=== PATIENT | male | born 1975 | race Caucasian/White ===

== ENCOUNTER 2016-10-08 17:42 | Emergency (ER) | payer BC ==
[~2016-10-08] VITALS: Ht 188 cm; Wt 92.0 kg
[2016-10-08 17:49] VITALS: TEMP 36.3; Ht 188 cm; Wt 92.0 kg
--- NOTE | 2016-10-08 18:44 | EMERGENCY ROOM VISIT NOTE ---
History Report prepared by Maria Elena: Nicole Limon Under the Supervision of: Dr. Kiara Hughes D.O. First contact with patient: 17:45 Chief Complaint: ABDOMINAL PAIN Stated Complaint: ABD PAIN Nursing Triage Summary: Pt arrives to ER BLS with c/o abdominal pain that began last evening. Describes the pain as a sharp cramping directly below the belly button, states "the pain brings me to my knees." Pt reports pain is intermittent and denies upon arrival to ER. History of Present Illness The patient is a 41 year old male who presents to the Emergency Room with complaints of abdominal pain occurring [employer] that has resolved at this time. The patient states that he used to experience similar episodes of abdominal pain that were related to his gallbladder. He had a cholecystectomy 2 years ago and states that he has not had any episodes of abdominal pain since the surgery. Last night he developed periumbilical abdominal pain that woke him up. He got hot and diaphoretic. His brother is a nurse and came to check on him. He found the patient in the position on the floor. He checked the patient's pulses and felt that they seemed weak. He wanted to bring the patient to the ED last night, but after about 15-20 minutes his pain completely resolved and he felt much better. Today the patient went to a restaurant with his . Before they ate, the patient developed the same pain again. He states that it was more painful than last night. He had shallow breathing and difficulty speaking secondary to pain. He feels bloated with each episode of pain and states that his stomach gets very tight. The patient was brought to the ED by ambulance. Nothing in particular seems to trigger his pain. The patient notes that his stool has been harder than usual the last couple of days. He denies any changes in the color of his stool. He also reports that earlier this week he experienced some left sided chest pain that radiated into his shoulder. That pain lasted for about 10 minutes and then resolved. He attributed this pain to a recent increase in physical activity and exercise. The patient denies any chest pain or shoulder pain today. He denies numbness, tingling, back pain, urinary symptoms, recent illness, and any sick contacts. Source of History: patient, family (brother), spouse/significant other Onset: [employer] Position: abdomen Symptom Intensity: severe Quality: other (tightness/bloating) Timing: resolved Modifying Factors (Relieving): other (time) Associated Symptoms: + diaphoresis, No back pain, No chest pain, No numbness , No urinary symptoms Review of Systems See HPI for pertinent positives & negatives. A total of 10 systems reviewed and were otherwise negative. Past Medical & Surgical Medical Problems: (1) GERD (gastroesophageal reflux disease) Surgical Problems: (1) History of cholecystectomy Family History Kidney disease Social History Smoking Status: Never Smoker Marital Status: Housing Status: lives with significant other Occupation Status: employed Current/Historical Medications Scheduled PRN Dicyclomine Hcl (Bentyl), 20 MG PO Q8 PRN for Pain Allergies Coded Allergies: No Known Allergies (Unverified , 10/08/16) Physical Exam Vital Signs Date Time Temp Pulse Resp B/P Pulse Ox O2 Delivery O2 Flow Rate FiO2 10/08/16 22:08 65 18 117/71 98 10/08/16 21:32 58 10/08/16 21:18 57 16 145/72 99 Room Air 10/08/16 20:00 59 16 125/70 98 Room Air 10/08/16 18:51 55 22 128/79 100 Room Air 10/08/16 17:56 52 10/08/16 17:49 36.3 53 18 125/78 100 Room Air Physical Exam GENERAL: alert, well appearing, well nourished, no distress, non-toxic EYE EXAM: normal conjunctiva, PERRL and EOM's grossly intact OROPHARYNX: no exudate, no erythema, lips, buccal mucosa, and tongue normal and mucous membranes are moist NECK: supple, no nuchal rigidity, no adenopathy, non-tender LUNGS: Clear to auscultation. Normal chest wall mechanics HEART: no murmurs, S1 normal and S2 normal ABDOMEN: abdomen soft, non-tender, normo-active bowel sounds, no masses, no rebound or guarding. BACK: Back is symmetrical on inspection and there is no deformity, no midline tenderness, no CVA tenderness. SKIN: no rashes and no bruising UPPER EXTREMITIES: upper extremities are grossly normal. LOWER EXTREMITIES: No pitting edema. NEURO EXAM: Normal sensorium, cranial nerves II-XII grossly intact, normal speech, no gross weakness of arms, no gross weakness of legs. Medical Decision & Procedures ER Provider Diagnostic Interpretation: Radiology results have been interpreted by the radiologist and reviewed by me. ABDOMEN AND PELVIS CT WITH IV AND ORAL CONTRAST CT DOSE: 423.94 mGy.cm HISTORY: abd pain, periumbilical TECHNIQUE: Multiaxial CT images of the abdomen and pelvis were performed following the use of intravenous and oral contrast. COMPARISON STUDY: None. FINDINGS: Mild dependent changes seen within the periphery of the right lung base. Cholecystectomy. Multiple subcentimeter hypodense lesions seen within the liver and kidneys. These are too small to characterize but favor cysts. There is also 1.9 cm hypodense lesion within the right kidney and a 1.4 cm lesion within the left kidney which measure greater than expected Hounsfield units for a simple cyst. However, these do not appear to demonstrate an enhancing component to suggest a solid renal mass. These also favor cysts. The spleen, adrenal glands, and pancreas are unremarkable. A single mildly enlarged portacaval lymph node. Mild central intrahepatic bile duct dilatation is likely due to the patient's postcholecystectomy state. The bladder is unremarkable. Tiny fat-containing umbilical hernia. No bowel wall thickening or obstruction. Normal appendix. There are a few small calcifications within the right kidney IMPRESSION: 1. No bowel wall thickening or obstruction. 2. Normal appendix. 3. Tiny fat-containing umbilical hernia. 4. Multiple hypodense lesions seen within the liver and kidneys. The majority of these are too small to characterize but statistically represent cysts. 5. Cholecystectomy. 6. Right renal calcifications. No hydronephrosis. Electronically signed by: Chilo Felix M.D. 10/08/2016 9:21 PM Dictated Date/Time: 10/08/2016 9:13 PM Laboratory Results 10/08/16 18:28 Red Blood Count 4.81, Mean Corpuscular Volume 89.2, Mean Corpuscular Hemoglobin 31.0, Mean Corpuscular Hemoglobin Concent 34.7, Mean Platelet Volume 9.4, Neutrophils (%) (Auto) 69.3, Lymphocytes (%) (Auto) 21.0, Monocytes (%) (Auto) 6.6, Eosinophils (%) (Auto) 2.7, Basophils (%) (Auto) 0.2, Neutrophils # (Auto) 5.63, Lymphocytes # (Auto) 1.71, Monocytes # (Auto) 0.54, Eosinophils # (Auto) 0.22, Basophils # (Auto) 0.02 5/14/17 18:28 Test 10/08/16 18:28 White Blood Count 8.14 K/uL (4.8-10.8) Red Blood Count 4.81 M/uL (4.7-6.1) Hemoglobin 14.9 g/dL (14.0-18.0) Hematocrit 42.9 % (42-52) Mean Corpuscular Volume 89.2 fL (80-100) Mean Corpuscular Hemoglobin 31.0 pg (25-34) Mean Corpuscular Hemoglobin Concent 34.7 g/dl (32-36) Platelet Count 215 K/uL (130-400) Mean Platelet Volume 9.4 fL (7.4-10.4) Neutrophils (%) (Auto) 69.3 % Lymphocytes (%) (Auto) 21.0 % Monocytes (%) (Auto) 6.6 % Eosinophils (%) (Auto) 2.7 % Basophils (%) (Auto) 0.2 % Neutrophils # (Auto) 5.63 K/uL (1.4-6.5) Lymphocytes # (Auto) 1.71 K/uL (1.2-3.4) Monocytes # (Auto) 0.54 K/uL (0.11-0.59) Eosinophils # (Auto) 0.22 K/uL (0-0.5) Basophils # (Auto) 0.02 K/uL (0-0.2) RDW Standard Deviation 43.4 fL (36.4-46.3) RDW Coefficient of Variation 13.2 % (11.5-14.5) Immature Granulocyte % (Auto) 0.2 % Immature Granulocyte # (Auto) 0.02 K/uL (0.00-0.02) Anion Gap 6.0 mmol/L (3-11) Est Creatinine Clear Calc Drug Dose 110.8 ml/min Estimated GFR () 106.4 Estimated GFR (Non- 91.8 BUN/Creatinine Ratio 13.4 (10-20) Lactic Acid Level 2.0 mmol/L (0.4-2.0) Calcium Level 9.4 mg/dl (8.5-10.1) Total Bilirubin 0.5 mg/dl (0.2-1) Aspartate Amino Transf (AST/SGOT) 88 U/L (15-37) Alanine Aminotransferase (ALT/SGPT) 130 U/L (12-78) Alkaline Phosphatase 104 U/L (45-117) Total Protein 7.9 gm/dl (6.4-8.2) Albumin 4.1 gm/dl (3.4-5.0) Globulin 3.8 gm/dl (2.5-4.0) Albumin/Globulin Ratio 1.1 (0.9-2) Lipase 211 U/L (73-393) Laboratory results per my review. Medications Administered Medications (Trade) Dose Ordered Sig/Jn Route Start Time Stop Time Status Last Admin Dose Admin Ondansetron HCl (Zofran 8mg Iv) 8 mg NOW STAT IV 10/08/16 19:20 10/08/16 19:21 DC 10/08/16 19:24 8 MG Fentanyl Citrate (Fentanyl Inj) 50 mcg NOW STAT IV 10/08/16 19:20 10/08/16 19:21 DC 10/08/16 19:25 50 MCG Fentanyl Citrate (Fentanyl Inj) 50 mcg NOW STAT IV 10/08/16 20:19 10/08/16 20:25 DC 10/08/16 20:23 50 MCG Dicyclomine HCl 20 mg 20 mg NOW ONCE PO 10/08/16 20:30 10/08/16 20:31 DC 10/08/16 20:26 20 MG Pantoprazole Sodium/Syringe (Protonix Inj/ Syringe) 10 ml @ 5 mls/min NOW ONCE IV 10/08/16 21:45 10/08/16 21:46 DC 10/08/16 22:05 5 MLS/MIN Dicyclomine HCl (Bentyl Tab) 20 mg NOW STAT PO 10/08/16 22:05 10/08/16 22:06 DC 10/08/16 22:15 20 MG ED Course 1745: The patient was evaluated in room B9. A complete history and physical exam was performed. 1917: I was called back into the room as the patient was having a recurrence of his abdominal pain. 0: Fentanyl 50 mcg IV, Zofran 8 mg IV 2018: Fentanyl Citrate 50 mcg IV 2029: Bentyl 20 mg PO 2053: Morphine sulfate 4 mg IV 2133: Toradol 30 mg IV 2138: I reassessed the patient at this time. He is feeling better and resting comfortably. I had an extensive bedside conversation with the patient regarding his results and treatment plan as well as follow-up with GI. I answered all pertaining questions that he had. He expressed understanding and verbalized agreement. The patient will be discharged home. 2145: Pantoprazole Sodium 40 mg IV 2205: Bentyl 20 mg PO Medical Decision Differential diagnoses includes but is not limited to gastritis, peptic ulcer disease, GERD, gallbladder disease, pancreatitis, small bowel obstruction, acute coronary syndrome, pericarditis, ischemic bowel, irritable bowel disease, irritable bowel syndrome, appendicitis, diverticulitis, malignancy, hernia, urinary tract infection, torsion, perforation, trauma, infectious, dissection, AAA. Patient well-appearing here despite intermittent episodes of recurrent. Billable abdominal pain. Episode seems spasmodic, or brief, did resolve here with additional pain medication. Labs and imaging otherwise reassuring. Discussed with patient possible etiology and differential diagnosis. Discussed need for close follow-up with family doctor as well as GI doctor when he returns home to [place]. Discussed symptoms to watch and return for. Discussed use of antispasmodic, monitoring of diet, and staying well-hydrated in the interim. Patient family verbalized understanding of all this were agreeable with plan. Doubt or vascular etiology, no evidence for bacteremia/ sepsis. Impression Primary Impression: Abdominal pain Scribe Attestation The scribe's documentation has been prepared under my direction and personally reviewed by me in its entirety. I confirm that the note above accurately reflects all work, treatment, procedures, and medical decision making performed by me. Departure Information Dispostion Home / Self-Care Prescriptions Dicyclomine Hcl (BENTYL) 20 Mg Tab 20 MG PO Q8 Y for Pain, #20 TAB Prov: Kiara Hughes DO 10/08/16 Forms Call Back Authorization, HOME CARE DOCUMENTATION FORM, IMPORTANT VISIT INFORMATION Patient Instructions My [facility] Additional Instructions Please follow up with her family doctor this week and schedule appointment to follow-up with a correction worker once he returned home. You may use the antispasm medication as provided, he may also use additional Tylenol and ibuprofen as needed. Please drink plenty of water to stay well-hydrated, and eat a normal diet. You may perform normal activity as tolerated. If you have worsening pain, develop fevers, vomiting, noticed a change in your stools, or you have any other new concerns, please return to the emergency room. Problem Qualifiers Primary Impression: Abdominal pain Abdominal location: periumbilical Qualified Codes: R10.33 - Periumbilical pain
[2016-10-08] MEDS ORDERED: OPTIRAY 320 IV PRN (18:45)
[2016-10-08 18:46] LABS: BASO % 0.2 %; BASO ABS # 0.02 K/uL (0-0.2); COMPLETE YES; EOS % 2.7 %; HEMATOCRIT 42.9 % (42-52); IG% 0.2 %; LYMPH ABS # 1.71 K/uL (1.2-3.4); MEAN CELL VOLUME 89.2 fL (80-100); MEAN CORPUSCULAR HGB CONC 34.7 g/dl (32-36); MEAN PLATELET VOLUME 9.4 fL (7.4-10.4); MONO % 6.6 %; NEUT % 69.3 %; PLATELET COUNT 215 K/uL (130-400); RED BLOOD COUNT 4.81 M/uL (4.7-6.1); WHITE BLOOD COUNT 8.14 K/uL (4.8-10.8)
[2016-10-08 19:02] LABS: BUN/CREATININE RATIO 13.4 (10-20); CALCIUM 9.4 mg/dl (8.5-10.1); POTASSIUM 3.6 mmol/L (3.5-5.1)
[2016-10-08 19:05] LABS: ALB/GLOB RATIO 1.1 (0.9-2)
[2016-10-08] MEDS ORDERED: FENTANYL CITRATE INJ 50 MCG/1 ML 2 ML VIAL IV STA ×2 (19:20→20:19)
[2016-10-08] MEDS ORDERED: ONDANSETRON 8 MG/54 ML D5W IV STA (19:20)
[2016-10-08] MEDS ORDERED: DICYCLOMINE HCL 10 MG CAP PO ONE (20:30)
[2016-10-08] MEDS: MoRPHine SULFATE 4 MG/ML 1 ML CARP\\VIAL IV STA ×2 (20:57→22:05)
--- NOTE | 2016-10-08 21:22 | DIAGNOSTIC IMAGING REPORT ---
ABDOMEN AND PELVIS CT WITH IV AND ORAL CONTRAST CT DOSE: 423.94 mGy.cm HISTORY: abd pain, periumbilical TECHNIQUE: Multiaxial CT images of the abdomen and pelvis were performed following the use of intravenous and oral contrast. COMPARISON STUDY: None. FINDINGS: Mild dependent changes seen within the periphery of the right lung base. Cholecystectomy. Multiple subcentimeter hypodense lesions seen within the liver and kidneys. These are too small to characterize but favor cysts. There is also 1.9 cm hypodense lesion within the right kidney and a 1.4 cm lesion within the left kidney which measure greater than expected Hounsfield units for a simple cyst. However, these do not appear to demonstrate an enhancing component to suggest a solid renal mass. These also favor cysts. The spleen, adrenal glands, and pancreas are unremarkable. A single mildly enlarged portacaval lymph node. Mild central intrahepatic bile duct dilatation is likely due to the patient's postcholecystectomy state. The bladder is unremarkable. Tiny fat-containing umbilical hernia. No bowel wall thickening or obstruction. Normal appendix. There are a few small calcifications within the right kidney IMPRESSION: 1. No bowel wall thickening or obstruction. 2. Normal appendix. 3. Tiny fat-containing umbilical hernia. 4. Multiple hypodense lesions seen within the liver and kidneys. The majority of these are too small to characterize but statistically represent cysts. 5. Cholecystectomy. 6. Right renal calcifications. No hydronephrosis. Electronically signed by: Chilo Felix M.D. 10/08/2016 9:21 PM Dictated Date/Time: 10/08/2016 9:13 PM
[2016-10-08] MEDS ORDERED: KETOROLAC TROMETHAMINE 30 MG/ML VIAL IV STA (21:34)
[2016-10-08] MEDS ORDERED: PANTOprazole INJ 40 MG in SYRINGE 0 ML IV ONE (21:45)
[2016-10-08] MEDS ORDERED: DICY20TA35 PO (22:04)
[2016-10-08] MEDS ORDERED: DICYCLOMINE HCL 20 MG TAB PO STA (22:05)
[2016-10-08 22:08] VITALS: BP 117/71; PULSE 65; O2SAT 98
== END 2016-10-08 22:19 | disposition home or self-care (01) ==
LOC: EDBD 17:42 → C.EDB 17:43
DX: R10.33 Periumbilical pain (principal)